=== PATIENT | female | born 1995 | race Caucasian/White ===

== ENCOUNTER 2024-05-03 08:39 | Emergency (ER) | payer OTHER ==
[~2024-05-03] VITALS: Ht 170.2 cm; Wt 114.4 kg
[2024-05-03 08:47] VITALS: BP 130/82; PULSE 81; RESP 16; TEMP 98.3; O2SAT 95
[2024-05-03] MEDS ORDERED: IBUP-2213 PO (10:35)
[2024-05-03] MEDS ORDERED: ACET-8905 PO (10:35)
[2024-05-03] MEDS: KETOROLAC 60 MG/2 ML VIAL IM ONE (10:54)
== END 2024-05-03 11:02 | disposition home or self-care (01) ==
LOC: MED 08:39
DX: S62.635A Displaced fracture of distal phalanx of left ring finger, initial encounter for closed fracture (principal); W22.8XXA Striking against or struck by other objects, initial encounter; Y92.89 Other specified places as the place of occurrence of the external cause; Y93.89 Activity, other specified; Y99.8 Other external cause status
CPT/HCPCS: 29130; 73140; 96372; 99283; J1885

== ENCOUNTER 2024-07-05 16:27 | Emergency (ER) | payer OTHER ==
[~2024-07-05] VITALS: Ht 170.2 cm; Wt 115.7 kg
[~2024-07-05 16:27] MED LIST: ACET-8905 PO; IBUP-2213 PO
[2024-07-05 16:49] VITALS: BP 108/84; PULSE 67; RESP 18; TEMP 98; O2SAT 98
[2024-07-05] MEDS ORDERED: BENZ1GEL13 MM (17:27)
[2024-07-05] MEDS ORDERED: IBUP-2213 PO (17:27)
== END 2024-07-05 17:39 | disposition home or self-care (01) ==
LOC: MED 16:27
DX: K12.1 Other forms of stomatitis (principal); Z79.899 Other long term (current) drug therapy
CPT/HCPCS: 99282